=== PATIENT | male | born 1980 | race Caucasian/White ===

== ENCOUNTER 2018-08-04 04:47 | Emergency (ER) | payer SELFPAY ==
[~2018-08-04] VITALS: Ht 177.8 cm; Wt 113.6 kg
[2018-08-04 09:07] VITALS: BP 112/70
== END 2018-08-04 09:27 | disposition home or self-care (01) ==
LOC: ER 04:47
DX: F10.129 Alcohol abuse with intoxication, unspecified (principal)
CPT/HCPCS: 36415; 99284; G0482